=== PATIENT | male | born 1940 | race Caucasian/White ===

== ENCOUNTER 2019-05-10 13:09 | Emergency (ER) | payer MEDICAID ==
[~2019-05-10] VITALS: Ht 162.6 cm; Wt 72.0 kg
[2019-05-10 19:11] VITALS: BP 137/81
== END 2019-05-10 19:11 | disposition home or self-care (01) ==
LOC: ER 13:09
DX: I82.4Z2 Acute embolism and thrombosis of unspecified deep veins of left distal lower extremity (principal)
CPT/HCPCS: 93971; 99284

== ENCOUNTER 2019-05-25 08:31 | Emergency (ER) | payer MEDICAID ==
[~2019-05-25] VITALS: Ht 167.6 cm; Wt 69.0 kg
[2019-05-25 09:19] VITALS: BP 146/48
== END 2019-05-25 09:44 | disposition home or self-care (01) ==
LOC: ER 08:31
DX: Z76.0 Encounter for issue of repeat prescription (principal); Z86.718 Personal history of other venous thrombosis and embolism; Z79.01 Long term (current) use of anticoagulants
CPT/HCPCS: 99283

== ENCOUNTER 2019-06-28 06:49 | Emergency (ER) | payer MEDICAID ==
[~2019-06-28] VITALS: Ht 165.1 cm; Wt 68.0 kg
[2019-06-28] MEDS ORDERED: KETOROLAC 30MG/ML VIAL IV ONE (07:45)
[2019-06-28 08:45] LABS: BASOPHILS % 0.7 % (0.0-2.0); CHLORIDE 104 mEq/L (98-107); EOSINOPHILS % 1.8 % (0.0-5.0); HEMATOCRIT. 45.8 % (42.0-52.0); LYMPHOCYTES % 17.2 % (20.0-50.0); MEAN CORPUSCULAR HEMOGLOBIN 28.2 pg (28.0-32.0); MEAN CORPUSCULAR VOLUME 85.8 fL (80.0-94.0); MEAN PLATELET VOLUME 8.9 fl (7.4-10.4); MONOCYTES % 10.4 % (2.0-8.0); NEUTROPHILS % 69.9 % (40.0-76.0); PLATELET 237 x1000/uL (130-400); RED BLOOD CELL COUNT 5.33 mill/uL (4.7-6.1); RED CELL DISTRIBUTION WIDTH 13.9 % (11.6-14.6)
[2019-06-28 08:46] LABS: PROTHROMBIN TIME 10.4 sec (9.6-11.0)
[2019-06-28 09:41] LABS: CLARITY URINE CLEAR (CLEAR); COLOR URINE YELLOW (YELLOW); KETONES URINE NEGATIVE (NEGATIVE); LEUKOCYTE ESTERASE URINE TRACE (NEGATIVE); NITRITE URINE NEGATIVE (NEGATIVE); OCCULT BLOOD URINE NEGATIVE (NEGATIVE); PROTEIN URINE NEGATIVE (NEGATIVE); SPECIFIC GRAVITY URINE 1.016 (1.005-1.030); UROBILINOGEN URINE 0.2 E.U./dL (0.2-1.0)
[2019-06-28 10:54] VITALS: BP 141/73
== END 2019-06-28 10:55 | disposition home or self-care (01) ==
LOC: ER 06:49
DX: K59.00 Constipation, unspecified (principal); E11.9 Type 2 diabetes mellitus without complications; R30.0 Dysuria; Z87.891 Personal history of nicotine dependence
CPT/HCPCS: 36415; 74176; 80053; 81003; 83690; 85025; 85610; 96374; 99284; J1885

== ENCOUNTER 2019-07-26 05:46 | Emergency (ER) | payer MEDICAID ==
[~2019-07-26] VITALS: Ht 167.6 cm; Wt 68.0 kg
[2019-07-26 10:53] VITALS: BP 140/75
== END 2019-07-26 10:58 | disposition home or self-care (01) ==
LOC: ER 05:46
DX: R51 Headache (principal); Z98.890 Other specified postprocedural states
CPT/HCPCS: 99284

== ENCOUNTER 2019-10-10 14:32 | Inpatient (IN) | payer MEDICAID ==
[~2019-10-10] VITALS: Ht 162.6 cm; Wt 71.7 kg
[2019-10-10] MEDS ORDERED: CEFTRIAXONE 1 G PREMIX 50 ML IV ONE (16:00)
[2019-10-10] MEDS ORDERED: SODIUM CHLORIDE 0.9% 1000ML BAG (SEPSIS BOLUS) IV ONE (16:00)
[2019-10-10 16:20] LABS: HEMATOCRIT. 40.4 % (42.0-52.0); HEMOGLOBIN. 13.3 g/dL (14.0-18.0); MEAN CORPUSCULAR HEMOGLOBIN 27.9 pg (28.0-32.0); MEAN CORPUSCULAR VOLUME 84.3 fL (80.0-94.0); MEAN PLATELET VOLUME 8.5 fl (7.4-10.4); PLATELET 204 x1000/uL (130-400); RED BLOOD CELL COUNT 4.79 mill/uL (4.7-6.1); RED CELL DISTRIBUTION WIDTH 14.2 % (11.6-14.6)
[2019-10-10 16:26] LABS: INR 1.1; PROTHROMBIN TIME 11.4 sec (9.6-11.0)
[2019-10-10 16:27] LABS: CHLORIDE 100 mEq/L (98-107)
[2019-10-10 16:37] LABS: PLATELET ESTIMATE NORMAL
[2019-10-10 18:12] LABS: CLARITY URINE TURBID (CLEAR); COLOR URINE RED (YELLOW); KETONES URINE NEGATIVE (NEGATIVE); LEUKOCYTE ESTERASE URINE 3+ (NEGATIVE); NITRITE URINE POSITIVE (NEGATIVE); OCCULT BLOOD URINE 3+ (NEGATIVE); PH URINE >=9.0 (4.5-8.0); PROTEIN URINE 3+ (NEGATIVE); SPECIFIC GRAVITY URINE 1.017 (1.005-1.030)
[2019-10-10] MEDS ORDERED: ONDANSETRON HCL 4MG/2ML INJ IV PRN (20:30)
[2019-10-10] MEDS ORDERED: ACETAMINOPHEN 325MG TABLET PO PRN (20:30)
[2019-10-11 01:30] VITALS: BP 127/56
[2019-10-11] MEDS: SODIUM CHLORIDE 0.9% 1,000 ML IV SCH ×2 (03:26→14:18)
[2019-10-11 04:00] VITALS: BP 137/66
[2019-10-11] MEDS ORDERED: RIVA20TA MT (04:08)
[2019-10-11] MEDS ORDERED: SIMV-43 PO (04:09)
[2019-10-11] MEDS ORDERED: TAMS-11 PO (04:10)
[2019-10-11] MEDS ORDERED: FINA5TAB11 PO (04:12)
[2019-10-11 07:01] LABS: HEMATOCRIT. 35.5 % (42.0-52.0); HEMOGLOBIN. 11.7 g/dL (14.0-18.0); MEAN CORPUSCULAR HEMOGLOBIN 27.4 pg (28.0-32.0); MEAN CORPUSCULAR VOLUME 83.2 fL (80.0-94.0); MEAN PLATELET VOLUME 8.4 fl (7.4-10.4); PLATELET 181 x1000/uL (130-400); RED BLOOD CELL COUNT 4.27 mill/uL (4.7-6.1); RED CELL DISTRIBUTION WIDTH 14.1 % (11.6-14.6)
[2019-10-11 07:52] LABS: CHLORIDE 104 mEq/L (98-107)
[2019-10-11 08:00] VITALS: BP 124/67
[2019-10-11] MEDS: TAMSULOSIN HCL 0.4MG SR CAPSULE PO SCH (08:46)
[2019-10-11 12:00] VITALS: BP 119/62
[2019-10-11] MEDS: FINASTERIDE 5MG TABLET PO SCH (14:19)
[2019-10-11 15:18] LABS: PLATELET ESTIMATE NORMAL
[2019-10-11 16:00] VITALS: BP 122/80
[2019-10-11] MEDS ORDERED: CEFTRIAXONE 1 G PREMIX 50 ML IV SCH (16:00)
[2019-10-11] MEDS ORDERED: CEFTRIAXONE 1,000 MG in DEXTROSE 5% WATER 50 ML IV SCH (18:00)
[2019-10-11 20:56] VITALS: BP 104/48
[2019-10-11] MEDS: ATORVASTATIN CALCIUM 20MG TABLET PO SCH (21:03)
[2019-10-12 00:47] VITALS: BP 108/51
[2019-10-12 04:00] VITALS: BP 118/49
[2019-10-12] MEDS: SODIUM CHLORIDE 0.9% 1,000 ML IV SCH (04:59)
[2019-10-12 07:15] LABS: BASOPHILS % 0.4 % (0.0-2.0); EOSINOPHILS % 2.2 % (0.0-5.0); HEMATOCRIT. 38.1 % (42.0-52.0); HEMOGLOBIN. 12.6 g/dL (14.0-18.0); LYMPHOCYTES % 14.3 % (20.0-50.0); MEAN CORPUSCULAR HEMOGLOBIN 27.5 pg (28.0-32.0); MEAN CORPUSCULAR VOLUME 83.1 fL (80.0-94.0); MONOCYTES % 12.7 % (2.0-8.0); NEUTROPHILS % 70.4 % (40.0-76.0); PLATELET 203 x1000/uL (130-400); RED BLOOD CELL COUNT 4.59 mill/uL (4.7-6.1); RED CELL DISTRIBUTION WIDTH 14.2 % (11.6-14.6)
[2019-10-12 07:32] LABS: CHLORIDE 105 mEq/L (98-107)
[2019-10-12 08:31] VITALS: BP 127/45
[2019-10-12] MEDS: TAMSULOSIN HCL 0.4MG SR CAPSULE PO SCH (08:44)
[2019-10-12] MEDS: FINASTERIDE 5MG TABLET PO SCH (08:44)
[2019-10-12 12:00] VITALS: BP 122/48
[2019-10-12] MEDS: POLYETHYLENE GLYCOL 3350 (17GM) 1 DOSE PACK PO SCH (12:05)
[2019-10-12] MEDS: CEFEPIME 1,000 MG in DEXTROSE 5% WATER 50 ML IV SCH (15:06)
[2019-10-12 16:07] VITALS: BP 106/53
[2019-10-12 20:38] VITALS: BP 124/54
[2019-10-12] MEDS: ATORVASTATIN CALCIUM 20MG TABLET PO SCH (22:11)
[2019-10-13 00:41] VITALS: BP 121/61
[2019-10-13] MEDS: CEFEPIME 1,000 MG in DEXTROSE 5% WATER 50 ML IV SCH ×2 (01:50→13:40)
[2019-10-13] MEDS: SODIUM CHLORIDE 0.9% 1,000 ML IV SCH ×2 (01:58→19:00)
[2019-10-13 04:00] VITALS: BP 120/53
[2019-10-13 06:41] LABS: BASOPHILS % 0.5 % (0.0-2.0); EOSINOPHILS % 3.5 % (0.0-5.0); HEMATOCRIT. 38.3 % (42.0-52.0); HEMOGLOBIN. 12.6 g/dL (14.0-18.0); LYMPHOCYTES % 15.7 % (20.0-50.0); MEAN CORPUSCULAR HEMOGLOBIN 27.4 pg (28.0-32.0); MEAN CORPUSCULAR VOLUME 83.2 fL (80.0-94.0); MEAN PLATELET VOLUME 8.6 fl (7.4-10.4); MONOCYTES % 12.8 % (2.0-8.0); NEUTROPHILS % 67.5 % (40.0-76.0); PLATELET 229 x1000/uL (130-400); RED CELL DISTRIBUTION WIDTH 14.3 % (11.6-14.6)
[2019-10-13 06:52] LABS: CHLORIDE 107 mEq/L (98-107)
[2019-10-13 08:00] VITALS: BP 128/57
[2019-10-13] MEDS: POLYETHYLENE GLYCOL 3350 (17GM) 1 DOSE PACK PO SCH (08:59)
[2019-10-13] MEDS: FINASTERIDE 5MG TABLET PO SCH (08:59)
[2019-10-13] MEDS: TAMSULOSIN HCL 0.4MG SR CAPSULE PO SCH (08:59)
[2019-10-13 12:00] VITALS: BP 116/66
[2019-10-13 16:46] VITALS: BP 123/61
[2019-10-13 20:00] VITALS: BP 109/57
[2019-10-13] MEDS: ATORVASTATIN CALCIUM 20MG TABLET PO SCH (22:08)
[2019-10-14 00:24] VITALS: BP 110/59
[2019-10-14] MEDS: CEFEPIME 1,000 MG in DEXTROSE 5% WATER 50 ML IV SCH ×2 (01:35→13:24)
[2019-10-14 04:00] VITALS: BP 112/54
[2019-10-14 06:53] LABS: BASOPHILS % 0.7 % (0.0-2.0); EOSINOPHILS % 4.7 % (0.0-5.0); HEMATOCRIT. 38.8 % (42.0-52.0); HEMOGLOBIN. 12.7 g/dL (14.0-18.0); LYMPHOCYTES % 16.7 % (20.0-50.0); MEAN CORPUSCULAR HEMOGLOBIN 27.4 pg (28.0-32.0); MEAN CORPUSCULAR VOLUME 83.8 fL (80.0-94.0); MEAN PLATELET VOLUME 8.7 fl (7.4-10.4); MONOCYTES % 13.1 % (2.0-8.0); NEUTROPHILS % 64.8 % (40.0-76.0); PLATELET 261 x1000/uL (130-400); RED BLOOD CELL COUNT 4.63 mill/uL (4.7-6.1); RED CELL DISTRIBUTION WIDTH 14.1 % (11.6-14.6)
[2019-10-14 07:31] LABS: CHLORIDE 106 mEq/L (98-107)
[2019-10-14] MEDS: FINASTERIDE 5MG TABLET PO SCH (10:37)
[2019-10-14] MEDS: TAMSULOSIN HCL 0.4MG SR CAPSULE PO SCH (10:38)
[2019-10-14] MEDS: POLYETHYLENE GLYCOL 3350 (17GM) 1 DOSE PACK PO SCH (10:39)
[2019-10-14] MEDS: SODIUM CHLORIDE 0.9% 1,000 ML IV SCH (10:44)
[2019-10-14] MEDS ORDERED: LEVO750T21 MT (12:01)
[2019-10-14 12:12] VITALS: BP 119/56
[2019-10-14 13:43] VITALS: BP 119/56
== END 2019-10-14 15:25 | disposition home or self-care (01) | DRG 720 ==
LOC: ER 14:32 → 6WST 18:56 → EDBEDREQ 18:59 → EDBEDREQTM 18:59 → EDBEDREQSVC 18:59 → ENRESERV 23:21
PROVIDERS: ADMIT Internal Medicine; ATTEND Internal Medicine
DX: A41.51 Sepsis due to Escherichia coli [E. coli] (principal); I82.412 Acute embolism and thrombosis of left femoral vein; D64.9 Anemia, unspecified; E78.5 Hyperlipidemia, unspecified; E87.1 Hypo-osmolality and hyponatremia; N40.0 Benign prostatic hyperplasia without lower urinary tract symptoms; N39.0 Urinary tract infection, site not specified; I82.432 Acute embolism and thrombosis of left popliteal vein; Z79.01 Long term (current) use of anticoagulants; Z79.899 Other long term (current) drug therapy
CPT/HCPCS: 36415; 71045; 76770; 80048; 80053; 81003; 83605; 84145; 84484; 85025; 87077; 87186; 93005; 93970; 99291; J0692; J0696; J7030; J7060

== ENCOUNTER 2020-04-05 05:54 | Inpatient (IN) | payer MEDICAID ==
[~2020-04-05] VITALS: Ht 167.6 cm; Wt 73.1 kg
[~2020-04-05 05:54] MED LIST: FINA5TAB11 PO; LEVO750T21 MT; RIVA20TA MT; SIMV-43 PO; TAMS-11 PO
[2020-04-05 06:40] LABS: CHLORIDE 100 mEq/L (98-107)
[2020-04-05 06:48] LABS: BASOPHILS % 0.3 % (0.0-2.0); EOSINOPHILS % 1.2 % (0.0-5.0); HEMATOCRIT. 41.8 % (42.0-52.0); HEMOGLOBIN. 13.8 g/dL (14.0-18.0); MEAN CORPUSCULAR HEMOGLOBIN 27.2 pg (28.0-32.0); MEAN CORPUSCULAR VOLUME 82.2 fL (80.0-94.0); MEAN PLATELET VOLUME 8.1 fl (7.4-10.4); MONOCYTES % 11.2 % (2.0-8.0); NEUTROPHILS % 78.3 % (40.0-76.0); PLATELET 278 x1000/uL (130-400); RED BLOOD CELL COUNT 5.09 mill/uL (4.7-6.1); RED CELL DISTRIBUTION WIDTH 14.8 % (11.6-14.6)
[2020-04-05] MEDS ORDERED: IOHEXOL-350 100 ML BOTTLE ONE (07:35)
[2020-04-05] MEDS ORDERED: LEVOFLOXACIN 750MG PREMIX 150 ML IV ONE (08:00)
[2020-04-05 10:55] VITALS: BP 105/61
[2020-04-05 11:35] VITALS: BP 105/61
[2020-04-05 12:00] VITALS: BP 97/67
[2020-04-05] MEDS ORDERED: SULF-288 MT (12:26)
[2020-04-05] MEDS ORDERED: POLY17PO3 MT (12:26)
[2020-04-05] MEDS ORDERED: MORPHINE SULFATE 2 MG/ML CPJ (NOT FOR IM USE) IV PRN (13:00)
[2020-04-05 16:00] VITALS: BP 115/60
[2020-04-05] MEDS: RIVAROXABAN 20 MG TABLET PO SCH (16:35)
[2020-04-05] MEDS: SULFAMETHOXAZOLE/TRIMETHOPRIM 800/160MG TABLET PO SCH ×2 (16:35→21:32)
[2020-04-05] MEDS: FINASTERIDE 5MG TABLET PO SCH (16:35)
[2020-04-05 16:55] LABS: HDL CHOLESTEROL 39 mg/dL (40-59); LDL CHOLESTEROL 104 mg/dL (5-100)
[2020-04-05 16:57] LABS: CREATINE KINASE 95 IU/L (39-308)
[2020-04-05 16:59] LABS: CREATINE KINASE MB FRACTION 1.7 ng/mL (0.5-3.6)
[2020-04-05] MEDS: POLYETHYLENE GLYCOL 3350 (17GM) 1 DOSE PACK PO PRN (18:45)
[2020-04-05 20:16] VITALS: BP 116/55
[2020-04-05] MEDS: ATORVASTATIN CALCIUM 20MG TABLET PO SCH (21:04)
[2020-04-05] MEDS: TAMSULOSIN HCL 0.4MG SR CAPSULE PO SCH (21:04)
[2020-04-06] VITALS: BP 112/63
[2020-04-06 00:15] LABS: CREATINE KINASE 83 IU/L (39-308)
[2020-04-06 00:17] LABS: CREATINE KINASE MB FRACTION 1.7 ng/mL (0.5-3.6)
[2020-04-06 04:00] VITALS: BP 104/57
[2020-04-06 07:14] LABS: BASOPHILS % 0.4 % (0.0-2.0); EOSINOPHILS % 3.2 % (0.0-5.0); HEMOGLOBIN. 13.1 g/dL (14.0-18.0); LYMPHOCYTES % 8.4 % (20.0-50.0); MEAN CORPUSCULAR HEMOGLOBIN 26.8 pg (28.0-32.0); MEAN CORPUSCULAR VOLUME 82.1 fL (80.0-94.0); MEAN PLATELET VOLUME 8.4 fl (7.4-10.4); PLATELET 264 x1000/uL (130-400); RED BLOOD CELL COUNT 4.87 mill/uL (4.7-6.1); RED CELL DISTRIBUTION WIDTH 14.5 % (11.6-14.6)
[2020-04-06 07:49] LABS: CHLORIDE 99 mEq/L (98-107)
[2020-04-06 08:00] VITALS: BP 109/67
[2020-04-06 08:07] LABS: CREATINE KINASE MB FRACTION 1.3 ng/mL (0.5-3.6)
[2020-04-06] MEDS: FINASTERIDE 5MG TABLET PO SCH (08:09)
[2020-04-06] MEDS: LEVOFLOXACIN 500MG PREMIX 100 ML IV SCH (08:09)
[2020-04-06] MEDS: SULFAMETHOXAZOLE/TRIMETHOPRIM 800/160MG TABLET PO SCH ×2 (08:09→21:11)
[2020-04-06 08:12] LABS: CREATINE KINASE 89 IU/L (39-308)
[2020-04-06 12:00] VITALS: BP 104/59
[2020-04-06 16:00] VITALS: BP 108/61
[2020-04-06] MEDS: RIVAROXABAN 20 MG TABLET PO SCH (17:15)
[2020-04-06] MEDS: POLYETHYLENE GLYCOL 3350 (17GM) 1 DOSE PACK PO PRN (18:25)
[2020-04-06 20:00] VITALS: BP 119/62
[2020-04-06] MEDS: TAMSULOSIN HCL 0.4MG SR CAPSULE PO SCH (21:11)
[2020-04-06] MEDS: ATORVASTATIN CALCIUM 20MG TABLET PO SCH (21:11)
[2020-04-07] VITALS (7 sets, daily range): BP systolic 101–116; BP diastolic 53–76
[2020-04-07 07:16] LABS: BASOPHILS % 0.4 % (0.0-2.0); EOSINOPHILS % 3.6 % (0.0-5.0); HEMATOCRIT. 41.6 % (42.0-52.0); HEMOGLOBIN. 13.3 g/dL (14.0-18.0); LYMPHOCYTES % 11.5 % (20.0-50.0); MEAN CORPUSCULAR HEMOGLOBIN 26.3 pg (28.0-32.0); MEAN CORPUSCULAR VOLUME 82.2 fL (80.0-94.0); MEAN PLATELET VOLUME 8.2 fl (7.4-10.4); MONOCYTES % 12.7 % (2.0-8.0); NEUTROPHILS % 71.8 % (40.0-76.0); PLATELET 298 x1000/uL (130-400); RED BLOOD CELL COUNT 5.05 mill/uL (4.7-6.1); RED CELL DISTRIBUTION WIDTH 14.3 % (11.6-14.6)
[2020-04-07 07:19] LABS: CHLORIDE 101 mEq/L (98-107)
[2020-04-07] MEDS: FINASTERIDE 5MG TABLET PO SCH (08:18)
[2020-04-07] MEDS: SULFAMETHOXAZOLE/TRIMETHOPRIM 800/160MG TABLET PO SCH ×2 (08:18→22:02)
[2020-04-07] MEDS: LEVOFLOXACIN 500MG PREMIX 100 ML IV SCH (08:19)
[2020-04-07] MEDS ORDERED: ACETAMINOPHEN 325MG TABLET PO PRN (11:15)
[2020-04-07] MEDS: AMIODARONE HCL 200 MG TABLET PO SCH ×2 (14:56→22:01)
[2020-04-07] MEDS: POLYETHYLENE GLYCOL 3350 (17GM) 1 DOSE PACK PO PRN (14:59)
[2020-04-07 15:07] LABS: CLARITY URINE CLEAR (CLEAR); COLOR URINE YELLOW (YELLOW); KETONES URINE TRACE (NEGATIVE); LEUKOCYTE ESTERASE URINE NEGATIVE (NEGATIVE); NITRITE URINE NEGATIVE (NEGATIVE); OCCULT BLOOD URINE NEGATIVE (NEGATIVE); PROTEIN URINE NEGATIVE (NEGATIVE)
[2020-04-07] MEDS: RIVAROXABAN 20 MG TABLET PO SCH (16:58)
[2020-04-07] MEDS ORDERED: AMIODARONE HCL 200 MG TABLET PO SCH (21:00)
[2020-04-07] MEDS: TAMSULOSIN HCL 0.4MG SR CAPSULE PO SCH (22:00)
[2020-04-07] MEDS: ATORVASTATIN CALCIUM 20MG TABLET PO SCH (22:01)
[2020-04-08 00:44] VITALS: BP 117/52
[2020-04-08 04:00] VITALS: BP 117/60
[2020-04-08 07:02] LABS: CHLORIDE 101 mEq/L (98-107)
[2020-04-08 07:04] LABS: BASOPHILS % 0.3 % (0.0-2.0); EOSINOPHILS % 3.7 % (0.0-5.0); HEMATOCRIT. 38.6 % (42.0-52.0); HEMOGLOBIN. 13.2 g/dL (14.0-18.0); LYMPHOCYTES % 10.5 % (20.0-50.0); MEAN CORPUSCULAR HEMOGLOBIN 27.8 pg (28.0-32.0); MEAN CORPUSCULAR VOLUME 81.3 fL (80.0-94.0); MEAN PLATELET VOLUME 7.6 fl (7.4-10.4); MONOCYTES % 11.5 % (2.0-8.0); PLATELET 303 x1000/uL (130-400); RED BLOOD CELL COUNT 4.75 mill/uL (4.7-6.1); RED CELL DISTRIBUTION WIDTH 14.2 % (11.6-14.6)
[2020-04-08] MEDS: LEVOFLOXACIN 500MG PREMIX 100 ML IV SCH (08:40)
[2020-04-08 08:45] VITALS: BP 113/56
[2020-04-08] MEDS: SULFAMETHOXAZOLE/TRIMETHOPRIM 800/160MG TABLET PO SCH (09:38)
[2020-04-08] MEDS: AMIODARONE HCL 200 MG TABLET PO SCH (09:38)
[2020-04-08] MEDS: FINASTERIDE 5MG TABLET PO SCH (09:38)
[2020-04-08 11:57] VITALS: BP 103/57
[2020-04-08 15:56] VITALS: BP 103/57
[2020-04-09] MEDS ORDERED: LEVOFLOXACIN 500MG TABLET PO SCH (11:00)
== END 2020-04-08 17:08 | disposition home or self-care (01) | DRG 720 ==
LOC: ER 05:58 → 6WST 08:35 → ENRESERV 10:28
PROVIDERS: ADMIT Internal Medicine; ATTEND Internal Medicine
DX: A41.9 Sepsis, unspecified organism (principal); E44.1 Mild protein-calorie malnutrition; E78.5 Hyperlipidemia, unspecified; E87.1 Hypo-osmolality and hyponatremia; I11.0 Hypertensive heart disease with heart failure; I48.0 Paroxysmal atrial fibrillation; I50.22 Chronic systolic (congestive) heart failure; J18.9 Pneumonia, unspecified organism; M94.0 Chondrocostal junction syndrome [Tietze]; N40.0 Benign prostatic hyperplasia without lower urinary tract symptoms; Z79.899 Other long term (current) drug therapy; Z79.01 Long term (current) use of anticoagulants; Z86.718 Personal history of other venous thrombosis and embolism; Z68.26 Body mass index [BMI] 26.0-26.9, adult; H91.90 Unspecified hearing loss, unspecified ear
CPT/HCPCS: 36415; 71045; 71275; 80048; 80053; 80061; 81003; 82550; 82553; 83880; 84443; 84484; 85025; 93005; 93306; 93970; 97162; 99285; J1956; J2270; Q9967

== ENCOUNTER 2023-12-19 06:15 | Emergency (ER) | payer MEDICAID, OTHER ==
[~2023-12-19] VITALS: Ht 167.6 cm; Wt 76.5 kg
[~2023-12-19 06:15] MED LIST changes: -LEVO750T21 MT; +POLY17PO3 MT
[2023-12-19 06:37] VITALS: O2SAT 95
[2023-12-19 08:45] VITALS: BP 144/68; PULSE 90; RESP 16; TEMP 97.9
== END 2023-12-19 08:55 | disposition home or self-care (01) ==
LOC: ER 06:15
DX: R68.89 Other general symptoms and signs (principal); Z87.440 Personal history of urinary (tract) infections; Z79.899 Other long term (current) drug therapy
CPT/HCPCS: 99281

== ENCOUNTER 2023-12-24 | Emergency (ER) | payer OTHER ==
[~2023-12-24] VITALS: Ht 167.6 cm; Wt 74.3 kg
[2023-12-24 00:10] VITALS: BP 121/59; RESP 12; O2SAT 96
[2023-12-24 00:11] VITALS: PULSE 99
== END 2023-12-24 02:37 | disposition home or self-care (01) ==
LOC: ER 00:17
DX: T83.098A Other mechanical complication of other urinary catheter, initial encounter (principal); Z87.440 Personal history of urinary (tract) infections; Z79.899 Other long term (current) drug therapy; X58.XXXA Exposure to other specified factors, initial encounter
CPT/HCPCS: 99281; Z7610

== ENCOUNTER 2023-12-26 09:06 | Emergency (ER) | payer OTHER ==
[~2023-12-26] VITALS: Ht 167.6 cm; Wt 72.7 kg
[2023-12-26 09:12] VITALS: O2SAT 95
[2023-12-26 11:00] VITALS: BP 149/63; PULSE 71; RESP 15; TEMP 98.5
== END 2023-12-26 11:22 | disposition home or self-care (01) ==
LOC: ER 09:06
DX: T83.018A Breakdown (mechanical) of other urinary catheter, initial encounter (principal); R33.9 Retention of urine, unspecified; I82.499 Acute embolism and thrombosis of other specified deep vein of unspecified lower extremity; Z98.890 Other specified postprocedural states; Y92.89 Other specified places as the place of occurrence of the external cause
CPT/HCPCS: 51702; 99284

== ENCOUNTER 2024-04-23 18:22 | Emergency (ER) | payer OTHER ==
[~2024-04-23] VITALS: Ht 162.6 cm; Wt 81.0 kg
[2024-04-23 18:45] VITALS: O2SAT 95
[2024-04-23 21:42] LABS: CLARITY URINE CLEAR (CLEAR); COLOR URINE YELLOW (YELLOW); GLUCOSE URINE NEGATIVE (NEGATIVE); KETONES URINE NEGATIVE (NEGATIVE); LEUKOCYTE ESTERASE URINE 1+ (NEGATIVE); NITRITE URINE NEGATIVE (NEGATIVE); OCCULT BLOOD URINE 3+ (NEGATIVE); PH URINE 6.5 (4.5-8.0); PROTEIN URINE NEGATIVE (NEGATIVE); SPECIFIC GRAVITY URINE 1.005 (1.005-1.030); UROBILINOGEN URINE 0.2 E.U./dL (0.2-1.0)
[2024-04-23 22:02] LABS: BACTERIA URINE TRACE; SQUAMOUS EPITHELIAL CELL URINE FEW /lpf (RARE/1+)
[2024-04-23 23:00] VITALS: BP 120/68; PULSE 83; RESP 17; TEMP 36.66960; O2SAT 100
[2024-04-23] MEDS ORDERED: TAMS-11 MT (23:10)
== END 2024-04-23 23:22 | disposition home or self-care (01) ==
LOC: ER 18:37
DX: N39.0 Urinary tract infection, site not specified (principal); Z79.899 Other long term (current) drug therapy
CPT/HCPCS: 81003; 99283